=== PATIENT | female | born 1995 | race Caucasian/White ===

== ENCOUNTER 2024-08-05 19:06 | Emergency (ER) | payer MEDICAID ==
[~2024-08-05] VITALS: Ht 165.1 cm; Wt 68.0 kg
[2024-08-05 19:17] VITALS: BP 127/65; PULSE 106; RESP 18; TEMP 98.9; O2SAT 99
== END 2024-08-06 00:53 | disposition left against medical advice (07) ==
LOC: ER 19:06
DX: F10.129 Alcohol abuse with intoxication, unspecified (principal); Y90.9 Presence of alcohol in blood, level not specified
CPT/HCPCS: 99283